=== PATIENT | female | born 1965 | race Caucasian/White ===

== ENCOUNTER 2016-08-24 14:09 | Emergency (ER) | payer BC ==
[2016-08-24 16:01] VITALS: BP 171/91
--- NOTE | 2016-08-24 16:35 | UC ---
Back Pain HPI - HPI Summary HPI Summary: was sitting on floor making a rug a week ago, hunched over in an awkward position for an hour or so. When she got up, left lumbar area was painful and tight. Progressive pain since then. NO other injury. No history of back injuries or pain. Motrin, heat, Icy Hot patches not helpful. Hard to sleep. Feels best to lie flat. No fever, no urinary symptoms - History of Current Complaint Chief Complaint: UCBackPain Stated Complaint: BACK PAIN Time Seen by Provider: 08/24/16 16:22 Hx Obtained From: Patient Hx Last Menstrual Period: 08/16/16 ?: No Onset/Duration: Gradual Onset, Lasting Weeks - 1 Timing: Constant Severity Initially: Mild Severity Currently: Moderate Back Pain: Is Discrete @ - left lumbar upper Character: Sharp, Aching, Spasmodic, Stiffness Aggravating: Movement Alleviating: Rest, Position Associated Signs And Symptoms: Positive: Pain with Weight Bearing. Negative: Swelling, Redness, Bruising, Fever, Weakness, Numbness, Tingling, Abdominal Pain , Flank Pain, Bladder Incontinence, Bowel Incontinence - Risk Factors AAA Risk Factors: Negative TAD Risk Factors: Negative Cauda Equina Risk Factors: Negative Epidural Abscess Risk Factors: Negative - Allergies/Home Medications Allergies/Adverse Reactions: Allergies Allergy/AdvReac Type Severity Reaction Status Date / Time No Known Allergies Allergy Verified 08/24/16 16:01 Home Medications: Home Medications Ibuprofen TAB* [Advil TAB*] 600 mg PO Q6H PRN 08/24/16 [History Confirmed ] Naproxen Sodium-Diphenhydramin [Aleve Pm 220-25 mg] 2 tab PO PRN 08/24/16 [ History] PMH/Surg Hx/FS Hx/Imm Hx Previously Healthy: Yes - Surgical History Surgical History: Yes Surgery Procedure, Year, and Place: x 1 - Family History Known Family History: Negative: Respiratory Disease, Seizure Disorder - Social History Occupation: Employed Full-time - [employer] Lives: With Family Alcohol Use: Rare Substance Use Type: None Smoking Status (MU): Never Smoked Tobacco Review of Systems Constitutional: Negative Skin: Negative Eyes: Negative ENT: Negative Respiratory: Negative Cardiovascular: Negative Gastrointestinal: Negative Genitourinary: Negative Motor: Negative Neurovascular: Negative Musculoskeletal: Decreased ROM, Myalgia Neurological: Negative Psychological: Negative All Other Systems Reviewed And Are Negative: Yes Physical Exam Triage Information Reviewed: Yes Vital Signs: Initial Vital Signs Temp 99.2 F 08/24/16 15:52 Pulse 66 08/24/16 15:52 Resp 16 08/24/16 15:52 BP 171/91 08/24/16 15:52 Pulse Ox 100 08/24/16 15:52 Vital Signs Reviewed: Yes Eye Exam: Normal Neck exam: Normal Neck: Positive: Supple Respiratory Exam: Normal Cardiovascular Exam: Normal Musculoskeletal Exam: Other - tenderness and spasm of left upper lumbar musculature Neurological Exam: Normal Psychological Exam: Normal Skin Exam: Normal Back Pain Course/Dx - Differential Dx/Diagnosis Differential Diagnosis/HQI/PQRI: Herniated Disc, Strain Provider Diagnoses: low back strain Discharge - Discharge Plan Condition: Stable Disposition: HOME Prescriptions: Carisoprodol TAB* [Soma TAB*] 350 mg PO TID PRN #20 tab MDD 3 tab PRN Reason: muscle spasm Patient Education Materials: Low Back Strain (ED), Lower Back Exercises (ED) Referrals: Rosa M Ruff-MD Denise [Primary Care Provider] - Tom BLAIR,Martínez Santamaria [Doctor of Chiropractic] -
== END 2016-08-24 16:44 | disposition home or self-care (01) ==
LOC: UCCORT 14:09
DX: S39.012A Strain of muscle, fascia and tendon of lower back, initial encounter (principal); X58.XXXA Exposure to other specified factors, initial encounter; Y93.89 Activity, other specified; Y92.9 Unspecified place or not applicable
CPT/HCPCS: 99202; G0463

== ENCOUNTER 2018-05-01 08:59 | Emergency (ER) | payer BC ==
[2018-05-01 09:25] VITALS: BP 168/82
--- NOTE | 2018-05-01 10:25 | UC ---
Lower Extremity/Ankle HPI - HPI Summary HPI Summary: Pt c/o left anterior lower leg pain that began "a couple days ago". Pt reports that last week of february 2018, she slopped and hyper-extended left knee and had left knee pain X 1 week that resolved. Denies any recent injury or prolonged stress to left lower extremity but no reports pain with standing and ambulation - History of Current Complaint Chief Complaint: UCLowerExtremity Stated Complaint: LEFT KNEE COMPLAINT Time Seen by Provider: 05/01/18 10:17 Hx Obtained From: Patient Hx Last Menstrual Period: 08/16/16 ?: No Onset/Duration: Sudden Onset, Lasting Days, Still Present Severity Initially: Mild Severity Currently: Mild Pain Intensity: 5 Aggravating Factor(s): Standing, Ambulation Alleviating Factor(s): Rest, Elevation Able to Bear Weight: Yes - painful - Risk Factors Gout Risk Factors: Age Over 40, Obesity DVT Risk Factors: Negative Septic Arthritis Risk Factor: Negative - Allergies/Home Medications Allergies/Adverse Reactions: Allergies Allergy/AdvReac Type Severity Reaction Status Date / Time No Known Allergies Allergy Verified 05/01/18 09:16 PMH/Surg Hx/FS Hx/Imm Hx Previously Healthy: Yes - Surgical History Surgical History: Yes Surgery Procedure, Year, and Place: x 1. tailbone cyst - Family History Known Family History: Negative: Respiratory Disease, Seizure Disorder - Social History Occupation: Employed Full-time Lives: With Family Alcohol Use: Rare Substance Use Type: None Smoking Status (MU): Never Smoked Tobacco Have You Smoked in the Last Year: No Review of Systems Constitutional: Negative Skin: Negative Eyes: Negative ENT: Negative Respiratory: Negative Cardiovascular: Negative Gastrointestinal: Negative Genitourinary: Negative Motor: Negative Neurovascular: Negative Musculoskeletal: Arthralgia - left knee, lower leg Neurological: Negative Psychological: Negative Is Patient Immunocompromised?: No All Other Systems Reviewed And Are Negative: Yes Physical Exam Triage Information Reviewed: Yes Appearance: Well-Appearing Vital Signs: Initial Vital Signs Temp 98.8 F 05/01/18 09:22 Pulse 68 05/01/18 09:22 Resp 12 05/01/18 09:22 BP 168/82 05/01/18 09:22 Pulse Ox 100 05/01/18 09:22 Vital Signs Reviewed: Yes Eye Exam: Normal ENT Exam: Normal Dental Exam: Normal Neck exam: Normal Respiratory: Positive: No respiratory distress Musculoskeletal: Positive: Strength Intact, ROM Intact, Other: - small bruise ( nickel size) at anterior ,proximal medial tibia and c/o tenderness at bruise. c/ o pain wiht ambulation and standing. Neurological Exam: Normal Psychological Exam: Normal Skin Exam: Other - bruise Diagnostics - Radiology No standard instances Radiology Interpretation Completed By: Radiologist - IMPRESSION: NO ACUTE OSSEOUS INJURY. IF SYMPTOMS PERSIST, RECOMMEND REPEAT IMAGING. Lower Extremity Course/Dx - Differential Dx/Diagnosis Differential Diagnosis/HQI/PQRI: Contusion, Fracture (Closed), Sprain, Strain Provider Diagnoses: left lower leg pain Discharge - Sign-Out/Discharge Documenting (check all that apply): Patient Departure All imaging exams completed and their final reports reviewed: Yes - Discharge Plan Condition: Stable Disposition: HOME Patient Education Materials: Leg Pain (ED) Referrals: Oliver Bliss MD [Medical Doctor] - If Needed Oh,In-MD Denise [Primary Care Provider] - If Needed - Billing Disposition and Condition Condition: STABLE Disposition: Home - Attestation Statements Provider Attestation: Per institutional requirements, I have reviewed the chart, however, I was not consulted specifically or made aware of this patient by the midlevel provider. I did not personally evaluate, interact with , or disposition this patient.
--- NOTE | 2018-05-01 10:42 | RAD ---
HISTORY: slipped two weeks ago, COMPARISONS: None VIEWS: 2 , Frontal and lateral views of the left foreleg FINDINGS: BONE DENSITY: Normal. BONES: There is no displaced fracture. JOINTS: There is no arthropathy. ALIGNMENT: There is no dislocation. SOFT TISSUES: Unremarkable. OTHER FINDINGS: None. IMPRESSION: NO ACUTE OSSEOUS INJURY. IF SYMPTOMS PERSIST, RECOMMEND REPEAT IMAGING.
== END 2018-05-01 11:01 | disposition home or self-care (01) ==
LOC: UCCORT 08:59
DX: M79.605 Pain in left leg (principal)
CPT/HCPCS: 99211; G0463

== ENCOUNTER 2018-10-20 08:39 | Emergency (ER) | payer BC ==
[2018-10-20 09:16] VITALS: BP 184/81
--- NOTE | 2018-10-20 09:45 | UC ---
Back Pain HPI - HPI Summary HPI Summary: [place] presents to urgent care with left low back pain that started last night. Patient states she went about 1:00. Patient 89 with some discomfort in her left back. Patient states she then developed spasms. Patient states she difficulty finding position of comfort through the night. At 4 AM she took 600 mg of Motrin with mild help. Patient hasn't taken anything else to treated. Patient denies any paresthesias in her legs. No weakness. No change in bowel or bladder. No hematuria no dysuria. Patient denies direct trauma. Patient states she's had problems with back spasms before but they've in her upper back. At that time, patient was prescribed Soma and didn't like how made her feel and it did not help her pain. Patient works at [employer] was excessive the left come here for evaluation. Patient without any other complaints. No chest pain or shortness of breath. No abdominal pain. No nausea/vomiting/diarrhea. Patient's medications reviewed this visit. - History of Current Complaint Chief Complaint: UCBackPain Stated Complaint: BACK CONCERN Time Seen by Provider: 10/20/18 09:39 Hx Obtained From: Patient Hx Last Menstrual Period: 09/2018 Pain Intensity: 10 - Allergies/Home Medications Allergies/Adverse Reactions: Allergies Allergy/AdvReac Type Severity Reaction Status Date / Time No Known Allergies Allergy Verified 10/20/18 09:12 PMH/Surg Hx/FS Hx/Imm Hx Previously Healthy: Yes - back spasms - Surgical History Surgical History: Yes Surgery Procedure, Year, and Place: x 1. tailbone cyst - Family History Known Family History: Positive: Non-Contributory Negative: Respiratory Disease, Seizure Disorder - Social History Occupation: Employed Full-time Lives: With Family Alcohol Use: Rare Substance Use Type: None Smoking Status (MU): Never Smoked Tobacco Have You Smoked in the Last Year: No Review of Systems All Other Systems Reviewed And Are Negative: Yes Cardiovascular: Negative: Negative Gastrointestinal: Negative: Negative Genitourinary: Negative: Negative Motor: Positive: Negative Neurovascular: Positive: Negative Musculoskeletal: Positive: Other: - muscle spasm Is Patient Immunocompromised?: No Physical Exam - Summary Physical Exam Summary: Vital Signs Reviewed: Yes A+Ox3, mild discomfort Eyes: Conjunctiva Clear, MARY. EOM intact and full ENT: Hearing grossly normal TM x 2 clear, mmoist, uvula midline, no exudate, no erythema Neck: Positive: Supple Respiratory: Positive: No respiratory distress, No accessory muscle use + CTA throughout no w/r Cardiovascular: RRR nl s1, s2 no m/r CBT <2 sec abd soft + BS nt/nd no guarding, no distension Musculoskeletal Exam: No spinous process pain c/t/l/s + Left paraspinal pain mid lumbar area- reproducible with direct palpation and ROM + 5/5 flex/ext elbow + abduct shoulder 5/5 SLE + flex/ext knee, ankle, great toed Neurological: Positive: Alert, + sensation throughout + gross sensation throughout 2+ patellar without clonus Psychological: Positive: Normal Response To Family Skin: Positive: no rash, no ecchymosis Triage Information Reviewed: Yes Vital Signs: Initial Vital Signs Temp 99.3 F 10/20/18 09:12 Pulse 66 10/20/18 09:12 Resp 18 10/20/18 09:12 BP 184/81 10/20/18 09:12 Pulse Ox 100 10/20/18 09:12 Back Pain Course/Dx - Course Course Of Treatment: Patient presents to urgent care with 12 hours of progressive lumbar spasm. Patient with history of upper back spasm in the low back. Patient has applied icy hot and taken Motrin with little improvement. Patient without any bowel or bladder problems. No radiculopathy described. On exam patient with reproducible pain. Patient very hypertensive but is them pain related to acute care. Patient's abdomen soft. Patient with good CSM distally. Recommend patient heat, stretch. Strict return precautions. Patient given physician referral center referral as well as contact information for physical therapy. Patient states understanding agreement with plan. Patient given work note. - Differential Dx/Diagnosis Provider Diagnosis: Back muscle spasm Discharge - Sign-Out/Discharge Documenting (check all that apply): Patient Departure All imaging exams completed and their final reports reviewed: No Studies - Discharge Plan Condition: Stable Disposition: HOME Prescriptions: Cyclobenzaprine TAB* [Flexeril 10 MG TAB*] 10 mg PO TID PRN #15 tab PRN Reason: muscle spasm Patient Education Materials: Muscle Spasm (ED), Back Pain (ED), Lower Back Exercises (ED) Forms: *Gen. Provider Communication, *Work Release Referrals: [facility] [Outside] No Primary Care Phys,NOPCP [Primary Care Provider] - Additional Instructions: - Okay to alternate ibuprofen (Advil, Motrin) 600mg and Tylenol 1000mg every 3hours as needed for pain. Take with food. Do NOT take for more than 4-5 days. -Take flexeril - muscle relaxer as prescribed - Do NOT drive, operate machinery or drink alcohol while taking Flexeril - it causes droswiness. -Apply moist heat to your back for 20 minutes at a time, 4-5 times a day. Once your muscles are warm, slow gentle stretching exercises are important -Contact the physician referral center to arrange with a new primary care provider. -If you pain is uncontrolled, you develop new symptoms (leg pain, changes to bowel/bladder, abdominal pain) - go to an emergency department for further treatment - Billing Disposition and Condition Condition: STABLE Disposition: Home
== END 2018-10-20 10:09 | disposition home or self-care (01) ==
LOC: UCCORT 08:39
DX: M62.830 Muscle spasm of back (principal)
CPT/HCPCS: 99212; G0463